=== PATIENT | female | born 1975 ===

== ENCOUNTER 2020-07-09 07:27 | Emergency (ER) | payer OTHER ==
[~2020-07-09] VITALS: Ht 162.6 cm; Wt 59.0 kg
[2020-07-09] MEDS ORDERED: XANAX XR2 MG (07:54)
[2020-07-09] MEDS ORDERED: ONDANSETRON ODT4 MG PO (14:57)
[2020-07-09] MEDS ORDERED: AIRBORNE EFFER1 EACH PO (14:57)
[2020-07-09] MEDS ORDERED: KETO10TA2 PO (14:57)
[2020-07-09] MEDS ORDERED: PEPCID AC20 MG PO (14:57)
== END 2020-07-09 16:34 | disposition home or self-care (01) ==
LOC: ER 07:27
DX: K29.00 Acute gastritis without bleeding (principal); B34.9 Viral infection, unspecified; R55 Syncope and collapse; Z03.818 Encounter for observation for suspected exposure to other biological agents ruled out